=== PATIENT | female | born 1985 | race Caucasian/White ===

== ENCOUNTER 2020-12-27 09:36 | Emergency (ER) | payer BC, OTHER ==
[2020-12-27 09:51] VITALS: BP 111/81; PULSE 86; TEMP 97.9; BMI 28.1
[2020-12-27 11:41] LABS: BASO % 0.2 % (0-2.0); EOS % 3.9 % (0-4.5); HEMATOCRIT 36.3 % (32.4-45.2); LYMPH % 17.7 % (8-40); MCH 30.7 pg (25.7-33.7); MCHC 33.1 g/dl (32.0-36.0); MEAN CELL VOLUME 92.9 fl (80-96); MEAN PLT VOLUME 9.3 fl (7.5-11.1); MONO % 6.8 % (3.8-10.2); NEUT % 71.4 % (42.8-82.8); PLATELET COUNT 308 K/MM3 (134-434); RDW 14.2 % (11.6-15.6); WHITE BLOOD COUNT 11.4 K/mm3 (4.0-10.0)
[2020-12-27 11:47] LABS: INR 1.03 (0.83-1.09); PROTHROMBIN TIME (PATIENT) 12.4 SEC (9.7-13.0)
[2020-12-27 11:50] LABS: ACTIVATED PTT 29.5 SECONDS (25.2-36.5)
[2020-12-27 12:02] LABS: POTASSIUM 3.8 mmol/L (3.5-5.1)
[2020-12-27 12:04] LABS: ALBUMIN 3.4 g/dl (3.4-5.0); BLOOD UREA NITROGEN 12.9 mg/dL (7-18); CALCIUM 9.1 mg/dL (8.5-10.1)
[2020-12-27 12:07] LABS: CREATININE 0.5 mg/dL (0.55-1.3)
[2020-12-27 12:09] LABS: BILIRUBIN,TOTAL 0.2 mg/dL (0.2-1); TOT PROT 7.2 g/dl (6.4-8.2)
[2020-12-27 12:48] LABS: EPI CELLS 8 /uL (0-25.1); HYALINE CASTS 1 /uL (0-3.1); URINE APPEARANCE CLEAR; URINE BACTERIA 269 /uL (0-1359); URINE BILIRUBIN NEGATIVE (NEGATIVE); URINE COLOR YELLOW; URINE GLUCOSE (UA) NEGATIVE (NEGATIVE); URINE KETONE TRACE (NEGATIVE); URINE LEUK ESTERASE NEGATIVE (NEGATIVE); URINE NITRITE NEGATIVE (NEGATIVE); URINE PROTEIN NEGATIVE (NEGATIVE); URINE RBC 15 /uL (0-23.9); URINE UROBILINOGEN 0.2 mg/dL (0.2-1.0); URINE WBC 6 /uL (0-25.8)
== END 2020-12-27 15:06 | disposition home or self-care (01) ==
LOC: JER 09:36
DX: O20.0 Threatened abortion (principal)
CPT/HCPCS: 36415; 76801-TC; 80053; 81003; 84702; 85025; 85610; 85730; 86850; 86900; 86901; 87086; 99284-25

== ENCOUNTER 2021-07-16 06:15 | Inpatient (IN) | payer BC, OTHER ==
[2021-07-16] MEDS: LACTATED RINGERS SOLUTION 1,000 ML IV SCH (07:00)
[2021-07-16] MEDS ORDERED: OXYTOCIN 20 UNITS in 0.9% NS 20 UNIT/1,000 ML INFUS.BAG IV ONE (07:36)
[2021-07-16] MEDS ORDERED: ONDANSETRON 4 MG/2 ML VIAL ONE (07:43)
[2021-07-16] MEDS ORDERED: CITRIC ACID/SODIUM CITRATE 30 ML UNIT-DOSE CUP PO ONE (07:50)
[2021-07-16] MEDS ORDERED: PHENYLEPHRINE HCL 10 MG/1 ML SINGLE DOSE VIAL ONE (07:52)
[2021-07-16] MEDS ORDERED: LIGASURE IMPACT TP ONE (08:05)
[2021-07-16 08:24] VITALS: BMI 30.2
[2021-07-16 08:49] LABS: METHADONE, UR NEGATIVE (NEGATIVE)
[2021-07-16 08:50] LABS: OPIATES, URI NEGATIVE (NEGATIVE); PHENCYCLIDINE,URINE NEGATIVE (NEGATIVE); URINE BARBITURATES NEGATIVE (NEGATIVE)
[2021-07-16 08:51] LABS: COCAINE, UR NEGATIVE (NEGATIVE); URINE AMPHETAMINES NEGATIVE (NEGATIVE); URINE BENZODIAZEPINES NEGATIVE (NEGATIVE)
[2021-07-16] MEDS ORDERED: ONDANSETRON 4 MG/2 ML VIAL IVPUSH PRN (10:52)
[2021-07-16] MEDS ORDERED: ACETAMINOPHEN 500 MG TABLET (FP) PO PRN (10:52)
[2021-07-16] MEDS ORDERED: IBUPROFEN 600 MG TABLET (FP) PO PRN (10:59)
[2021-07-16] MEDS ORDERED: ACETAMINOPHEN 325 MG TABLET (FP) PO PRN ×2 (10:59→11:01)
[2021-07-16] MEDS ORDERED: morphine SULFATE/PF 1 MG/2 ML (2cc Syringe - QUVA) EP ONE (10:59)
[2021-07-16] MEDS ORDERED: ACETAMINOPHEN 1000 MG/100 ML VIAL (NON FORMULARY) IVPB PRN (11:01)
[2021-07-16] MEDS ORDERED: ONDANSETRON 4 MG/2 ML VIAL IVPB PRN (11:01)
[2021-07-16] MEDS ORDERED: SENNOSIDES/DOCUSATE COMBO (SENNA PLUS) TABLET (UD) PO PRN (11:01)
[2021-07-16] MEDS ORDERED: IBUPROFEN 800 MG/8 ML IJ IVPB PRN (11:01)
[2021-07-16] MEDS: OXYTOCIN 20 UNITS in 0.9% NS 20 UNIT/1,000 ML INFUS.BAG IV SCH (12:13)
[2021-07-16] MEDS: CEFAZOLIN 2 GM in DEXTROSE 5%-WATER 100 ML IVPB SCH (17:16)
[2021-07-16] MEDS: SIMETHICONE 80 MG TAB.CHEW (FP) PO PRN ×2 (19:26→23:35)
[2021-07-16] MEDS: oxyCODONE HCL 5 MG TABLET PO PRN (23:30)
[2021-07-16] MEDS: IBUPROFEN 600 MG TABLET (FP) PO PRN (23:35)
[2021-07-17] MEDS: CEFAZOLIN 2 GM in DEXTROSE 5%-WATER 100 ML IVPB SCH ×2 (00:38→08:30)
[2021-07-17 09:04] LABS: BASO % 0.4 % (0-2.0); HEMATOCRIT 34.8 % (32.4-45.2); HEMOGLOBIN 11.7 GM/dL (10.7-15.3); LYMPH % 11.5 % (8-40); MCH 32.4 pg (25.7-33.7); MCHC 33.6 g/dl (32.0-36.0); MEAN CELL VOLUME 96.6 fl (80-96); MEAN PLT VOLUME 10.7 fl (7.5-11.1); NEUT % 77.1 % (42.8-82.8); PLATELET COUNT 168 10^3/uL (134-434); RDW 14.8 % (11.6-15.6); WHITE BLOOD COUNT 9.6 K/mm3 (4.0-10.0)
[2021-07-17] MEDS: SIMETHICONE 80 MG TAB.CHEW (FP) PO PRN ×2 (10:54→19:35)
[2021-07-17] MEDS: IBUPROFEN 600 MG TABLET (FP) PO PRN ×2 (10:54→19:35)
[2021-07-17] MEDS ORDERED: BISACODYL 10 MG SUPP.RECT RC PRN (11:01)
[2021-07-17] MEDS: LACTATED RINGERS SOLUTION 1,000 ML IV SCH (12:14)
[2021-07-17] MEDS: OXYTOCIN 20 UNITS in 0.9% NS 20 UNIT/1,000 ML INFUS.BAG IV SCH (12:14)
[2021-07-17] MEDS: oxyCODONE HCL 5 MG TABLET PO PRN (19:34)
[2021-07-18] MEDS: IBUPROFEN 600 MG TABLET (FP) PO PRN (09:34)
[2021-07-18] MEDS: SIMETHICONE 80 MG TAB.CHEW (FP) PO PRN (09:35)
[2021-07-18 11:14] VITALS: BP 116/69; PULSE 77; TEMP 97.5
== END 2021-07-18 13:10 | disposition home or self-care (01) | DRG 785 ==
LOC: JLDR 06:15 → J3W 11:10
PROVIDERS: ADMIT Specialist; ATTEND Specialist
PROC: 0UT60ZZ Resection of Left Fallopian Tube, Open Approach (ICD-10-PCS; principal; 2021-07-16)
PROC: 10D00Z1 Extraction of Products of Conception, Low, Open Approach (ICD-10-PCS; 2021-07-16)
PROC: 0UT10ZZ Resection of Left Ovary, Open Approach (ICD-10-PCS; 2021-07-16)
DX: O34.219 Maternal care for unspecified type scar from previous cesarean delivery (principal); Z3A.39 39 weeks gestation of pregnancy; Z37.0 Single live birth; Z30.2 Encounter for sterilization; O34.83 Maternal care for other abnormalities of pelvic organs, third trimester; N83.292 Other ovarian cyst, left side
CPT/HCPCS: 36415; 80307; 85025; 88302-TC; 88304-TC; 88307-TC; J0131